=== PATIENT | female | born 1960 | race Caucasian/White ===

== ENCOUNTER 2024-02-14 23:03 | Emergency (ER) | payer OTHER, SELFPAY ==
[2024-02-14 23:05] VITALS: BP 159/94
--- NOTE | 2024-02-15 00:01 | ED.GENMED ---
Addendum entered and electronically signed by Mary Gayle PA-C 02/17/24 07:12:
prelim urine culture e coli on cefdinir, await sensitivities
Original Note:
History of Present Illness
General
Chief Complaint: Urinary Symptoms
Source: patient
Exam Limitations: none
Time Seen by Provider: 02/14/24 23:35
History of Present Illness
History of Present Illness:
This is a 63 year old female that comes in with c/o hematuria and urinary burning. States that she was at work around 5pm and she started with this burning. Ptaient went home thinking it would go away and at 7pm she has low back pain that lasted for
about a half hour and then went away. States that she had blood in the urine and pass some clots. States that the pain in her back was then gone. States that she continued with blood in her urine so she went to and they were not seeing patient
so she went home again. States that it didn't go away so she came in. States that she still has urinary burning. Denies any fever, chills, chest pain, SOB, abd pain, nausea, vomiting, diarrhea, headache, dizziness.
Past History
Past History
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
ED Past Surgical History: Gynecological (D&C), Tonsilectomy and Other (corneal transplant left eye)
Social History
Tobacco: Former smoker
Alcohol: Occasional
Personal:
Living: with family
Employment: Employed
Review of Systems
Review of Systems
All Other Systems: ROS reviewed and negative except as documented in HPI and ROS
Constitutional: Reports no symptoms; Denies fever or chills
EENT: Reports no symptoms
Respiratory: Reports no symptoms; Denies cough or trouble breathing
Cardiac: Reports no symptoms; Denies chest pain
ABD/GI: Denies abdominal pain, nausea, vomiting or diarrhea
: Reports other (Henaturia)
Musculoskeletal: Reports back pain
Skin: Reports no symptoms
Neurological: Reports no symptoms; Denies dizzy or headache
Psychiatric: Reports no symptoms
Phy Exam
General Physical Exam
General Presentation: well appearing and no apparent distress
General age: appears stated age
General Skin: warm and dry
General Habitus: normal
General Mental: alert
General Hydration: appears well hydrated
ENT Exam
ENT Exam: TM's normal, pharynx normal and neck supple
Eye Exam
Eye Exam: EOMI
Cardiovascular Exam
Cardiovascular Exam: regular rate/rhythm, no edema, no murmur and normal peripheral pulses
Pulmonary Exam
Pulmonary Exam: lungs clear, no respiratory distress, no rales, chest non tender, no crackles, no rhonchi, no wheezing and no cough
Gastrointestinal Exam
Gastrointestinal Exam: normal bowel sounds, non tender, soft, no organomegaly, no pulsatile mass and non distended
Musculoskeletal Exam
Musculoskeletal Exam: full ROM and no edema
Skin Exam
Skin Exam: normal color, warm/dry, no rash and no petechia
Psychiatric Exam
Psychiatric Exam: normal mood/affect
Course
Orders/Labs/Results
Orders:
Orders
02/14/24 23:23
Urinalysis Reflex To Culture Urgent
Date Specimen was Collected: 02/15/24
Time Specimen was Collected: 00:48
02/15/24 00:00
CT Abd/pel Without Iv Or Oral Urgent
Comment:
Reason For Exam: hEMATURIA, lOW BACK PAIN
0.9% Sodium Chloride 1000 ml [Nss] 1,000 ml IV BOLUS
02/15/24 01:00
Complete Blood Count/With Diff Urgent
Comprehensive Metabolic Panel Urgent
Urine Microscopic Reflex Cult Urgent
Urine Culture Urgent
CHARANJIT Source: U
Specimen Description:
Date Specimen was Collected: 02/15/24
Time Specimen was Collected: 00:48
02/15/24 01:02
CefTRIAXone [Rocephin] 1,000 mg IV NOW STA
02/15/24 01:22
Phenazopyridine HCl [Pyridium] 200 mg PO NOW STA
Abnormal Lab Results
02/15/24
01:00
RBC 3.73 L 10^6/uL
(4.20-5.40)
Hgb 11.3 L g/dL
(12.0-16.0)
Hct 33.5 L %
(37.0-47.0)
MPV 10.5 H fL
(7.4-10.4)
Absolute Lymphs (auto) 0.9 L 10^3/uL
(1.2-3.4)
Neutrophils % 77.5 H %
(42.2-75.2)
Lymphocytes % 13.3 L %
(20.5-51.1)
Carbon Dioxide 31 H mmol/L
(22-30)
Glucose 117 H mg/dl
(70-99)
Ur Occult Blood Reflex 4+ A
(Negative)
Urine Nitrite (Reflex) Positive A
(Negative)
Leukocyte Esterase Rfl 1+ A
(Negative)
Urine RBC >100 A /HPF
(0-2)
Urine Bacteria (Reflex) Moderate A
(Negative)
Urine Albumin (Reflex) 2+ A
(Neg - Trace)
02/15/24 01:00
02/15/24 01:00
H/H slightly low. Glucose nonfasting. Urine positive for infection. Unable to count WBC due to RBC's
Vital Signs
Initial and Last Documented VS:
Initial Vital Signs
Temp Pulse Resp BP Pulse Ox
98.0 F 103 18 159/94 100
02/14/24 23:05 02/14/24 23:05 02/14/24 23:05 02/14/24 23:05 02/14/24 23:05
Last Documented Vital Signs
Temp Pulse Resp BP Pulse Ox
98.0 F 103 18 159/94 100
02/14/24 23:05 02/14/24 23:05 02/14/24 23:05 02/14/24 23:05 02/14/24 23:05
MDM/Problems Addressed
Differential Diagnosis Includes:
Renal calculus, UTI, Hematuria
MDM/Problems Addressed:
This is a 63 year old female that comes in with c/o urinary burning and hematuria. States that this started about 5pm and continued to get worse. States that she had some low back pain but after she passed some clots the pain went away.
Will get labs, Urine and CT scan. Will also give IV fluids
Back into see patient. Explained that the CT is negative for any stones or any other acute process. This is most likely a UTi. Will give IV antibiotic and await for labs and urine. Will place patient on antibiotics for the next 7 days. Patient to
follow up with the family doctor for recheck after she is off the antibiotics. Patient to return with any concerns.
Chronic conditions affecting care:
NA
Acute Exacerbation and/or Progression of Chronic Illness:
NA
*Radiology
Radiology exam reviewed: radiology read reviewed (CT scan. Night hawk- Decreased sensitivity in the evaluation of the abdomen viscera due to lack of IV contrast. No definite CT findings to accound for the reported pain/symptoms. Large volume of
inspissated debris in the stomach. Moderate colonic stool volume. Constipation? Mild Mesenteric edema.), all reviewed NAD by ED Provider (CT cont- NO frree fluid or free air. mild bladder wall thickening greater than expected for the degree of
distension. Correlate with urine studies. No evidence of hydroureteronephrosis or obstructing stone. No significant perinephric fat stranding. No appendicitis or colitis. ) and other (CT cont- No evidence of small bowel obstruction. NO AAA)
*Pulse Oximetry
Patient hypoxic: no
*EKG
Interpreted by ED Provider?: NA
Rate: EKG- N/A
*Node Js Developer Interpretation
Rate: Node Js Developer- N/A
*Critical Care Note
Total Time (30-74mins, 75-104mins- exclusive of procedures): Not Applicable
ED Attending Note
-
Portions of this chart may have been created with voice recognition software.� Occasional wrong word or��sound alike� substitutions may have occurred due to the inherent limitations of voice recognition software.
Discharge Plan
Departure
Patient Disposition: Home (Routine Discharge)
Date of Disposition: 02/15/24
Time of Disposition: 01:41
Patient with high blood pressure during this ER visit?: Yes
Condition: Good
Covid-19: Not Applicable
Discharge Problem:
Urinary tract infection
Instructions: Urinary Tract Infection, Adult (DC), BLOOD PRESSURE
Prescriptions:
New
cefdinir 300 mg capsule
300 mg PO BID Qty: 14 0RF
No Action
cyclobenzaprine 10 MG tablet
10 mg PO TIDPRN PRN (Reason: MUSCLE SPASM/TIGHTNESS) Qty: 20 0RF
amoxicillin-pot clavulanate 875 MG/125 MG tablet
1 tab PO BID Qty: 20 0RF
cyclobenzaprine 10 MG tablet
10 mg PO TID PRN (Reason: Back spasms, tightness) Qty: 30 0RF
prednisone 50 MG tablet
50 mg PO DAILY Qty: 5 0RF
oxycodone-acetaminophen [Percocet] 1 EACH tablet
1 tab PO Q6HPRN PRN (Reason: pain) Qty: 10 0RF
hydrocodone-acetaminophen 1 TABLET tablet
1 tab PO Q4HPRN PRN (Reason: pain) Qty: 15 0RF
hydrocodone-acetaminophen [[place]] 1 EACH tablet
1 ea PO Q4HPRN PRN (Reason: pain) Qty: 10 0RF
Referrals:
UNKNOWN - PT DOES,NOT KNOW [Family Provider] -
Activity Restrictions/Additional Instructions:
As discussed, your blood work is normal and your urine is positive for infection. You have been given IV fluids here to help with hydration and an IV antibiotics. A prescription for an antibiotic has been sent to your pharmacy for the next 7 days.
Please start this in the morning. Please increase your water intake to 8-8oz glasses daily. Follow up with the family doctor for recheck after you have completed the antibiotics to recheck a urine to make sure the infection is gone. You have been
given a Pyridium here that will help with bladder spasm. IF YOU HAVE FEVER, INCREASED OR CHANGING PAIN, OR YOU HAVE ANY OTHER CONCERNS PLEASE RETURN TO THE EMERGENCY ROOM.
Interventions
Interventions:
*Risk Screen - Suicide Last Done: 02/14/24 23:05
*General Assessment Last Done: 02/14/24 23:05
*Neglect/Abuse Screening Last Done: 02/14/24 23:05
*ED COVID-19 Vaccine History Last Done: 02/14/24 23:09
Discharge Date and Time
Print Language: GRENADIAN
[2024-02-15] MEDS: NSS 1000 IV (00:55)
[2024-02-15 01:11] LABS: % Basophils 0.3 % (0-2); % Eosinophils 1.3 % (0-6); % Immature Granulocytes 0.1 % (0-0.5); % Lymphocytes 13.3 % (20.5-51.1); % Monocytes 7.5 % (1.7-9.3); % Neutrophils 77.5 % (42.2-75.2); Absolute Eosinophils 0.1 10^3/uL (0-0.7); Absolute Lymphocytes 0.9 10^3/uL (1.2-3.4); Absolute Monocytes 0.5 10^3/uL (0.1-0.6); Absolute Neutrophils 5.2 10^3/uL (1.4-6.5); Hematocrit 33.5 % (37.0-47.0); Hemoglobin 11.3 g/dL (12.0-16.0); Mean Corp Hgb Conc. 33.7 g/dL (33.0-37.0); Mean Corpuscular Hgb 30.3 pg (27.0-31.0); Mean Corpuscular Volume 89.8 fL (81.0-99.0); Mean Platelet Volume 10.5 fL (7.4-10.4); Nucleated Red Blood Cells % 0 %; Platelet Count 204 10^3/uL (130-400); Red Blood Cell Count 3.73 10^6/uL (4.20-5.40); Red Cell Dist. Width 12.1 % (11.5-14.5); White Blood Cell Count 6.7 10^3/uL (4.8-10.8)
[2024-02-15 01:17] LABS: Urine Albumin 2+ (Neg - Trace); Urine Bilirubin Negative (Negative); Urine Character Bloody (Clear); Urine Color Red; Urine Glucose Negative (Negative); Urine Ketone Negative (Negative); Urine Leukocyte 1+ (Negative); Urine Nitrite Positive (Negative); Urine Occult Blood 4+ (Negative); Urine Urobilinogen Negative (Neg - 1+)
[2024-02-15 01:24] LABS: ALT (SGPT) 21 U/L (0-35); AST (SGOT) 26 U/L (14-36); Albumin 4.3 g/dl (3.5-5.0); Alkaline Phosphatase 71 U/L (38-126); Blood Urea Nitrogen 10 mg/dl (7-17); Calcium 9.4 mg/dl (8.4-10.2); Carbon Dioxide 31 mmol/L (22-30); Chloride 99 mmol/L (98-107); Glucose 117 mg/dl (70-99); Potassium 4.2 mmol/L (3.5-5.1); Sodium 136 mmol/L (135-145); Total Bilirubin 0.2 mg/dl (0.2-1.3); Total Protein 6.6 g/dl (6.3-8.2); eGFR > 60.00
[2024-02-15] MEDS: Pyridium 200 MG PO (01:31)
[2024-02-15] MEDS: ROCEPHIN 1000 MG IV (01:31)
[2024-02-15 01:38] LABS: Urine Bacteria Moderate (Negative); Urine Red Blood Cell >100 /HPF (0-2); Urine Squamous Cell 0-2 /LPF (Few)
[2024-02-15 02:00] VITALS: BP 132/88
== END 2024-02-15 02:00 | disposition home or self-care (01) ==
LOC: EMR 23:03
PROVIDERS: Clinical Nurse Specialist Family Health; Emergency Medicine; EMERGENCY PHYSICIAN Emergency Medicine
DX: N39.0 Urinary tract infection, site not specified (principal); Z87.891 Personal history of nicotine dependence
CPT/HCPCS: 99284; 96374; 96361; 74176; 80053; 81003; 81015; 85025; 87077; 87086; 87186